=== PATIENT | female | born 1995 | race Caucasian/White ===

== ENCOUNTER 2023-03-28 06:46 | Inpatient (IN) | payer MEDICAID ==
[2023-03-28] MEDS ORDERED: Lidocaine 1% 50 ML MDV INJECT ONE ×2 (07:00→19:30)
[2023-03-28] MEDS ORDERED: Oxytocin/Lactated Ringers 10 UNIT/1,000 ML BAG IV SCH ×3 (07:00→23:02)
[2023-03-28] MEDS ORDERED: Nalbuphine HCl 10 MG/ 1ML Amp IVPUSH PRN (07:00)
[2023-03-28] MEDS ORDERED: Ondansetron 4 MG/2 ML SDV IVPUSH PRN (07:00)
[2023-03-28] MEDS ORDERED: Calcium Carbonate 500 MG Tab.Chew PO PRN (07:00)
[2023-03-28 07:20] LABS: BASOPHILS PERCENT AUTO 0.3 % (0.0-1.0); EOSINOPHILS PERCENT AUTO 0.3 % (0.0-6.0); IMMATURE GRAN ABSOLUTE AUTO 0.11 K/mm3 (0.00-0.05); IMMATURE GRAN PERCENT AUTO 1.1 % (0.0-0.4); LYMPHOCYTES ABSOLUTE AUTO 1.6 K/mm3 (1.0-4.8); LYMPHOCYTES PERCENT AUTO 15.8 % (24.0-44.0); MEAN CORPUSCULAR HGB CONC 34.2 g/dl (32.0-36.0); MEAN CORPUSCULAR VOLUME 93.6 fl (83.0-99.0); MEAN PLATELET VOLUME 10.4 fl (9.4-12.3); MONOCYTES ABSOLUTE AUTO 0.8 K/mm3 (0.0-0.8); MONOCYTES PERCENT AUTO 7.7 % (0.0-8.0); NEUTROPHILS ABSOLUTE AUTO 7.8 K/mm3 (1.8-7.7); NEUTROPHILS PERCENT AUTO 74.8 % (41.0-71.0); PLATELET COUNT,PLT 166 K/mm3 (150-400); RED BLOOD CELL COUNT 4.06 M/mm3 (4.10-5.30); WHITE BLOOD CELL COUNT,WBC 10.41 K/mm3 (3.9-11.3)
[2023-03-28] MEDS: Lactated Ringers 1,000 ML IV SCH ×2 (08:24→19:36)
[2023-03-28] MEDS ORDERED: Bupivacaine 0.25% 10 ML SDV ONE (12:00)
[2023-03-28] MEDS ORDERED: Tranexamic Acid 1,000 MG/10 ML Vial ONE (19:15)
[2023-03-28] MEDS ORDERED: Bupivacaine/fentaNYL/NS 100 ML Bag EPIDUR PRN (19:53)
[2023-03-28] MEDS ORDERED: diphenhydrAMINE 50 MG/ML SDV IVPUSH PRN (19:53)
[2023-03-28] MEDS ORDERED: fentaNYL 100 MCG/2 ML SDV EPIDUR PRN (19:53)
[2023-03-28] MEDS ORDERED: ePHEDrine 50 MG/ML SDV IVPUSH PRN (19:53)
[2023-03-28] MEDS ORDERED: Witch Hazel Medicated Pads 40/Jar TOP PRN (23:02)
[2023-03-28] MEDS ORDERED: Measles, Mumps & Rubella Vaccine 0.5 ML SDV SUBCUT ONE (23:02)
[2023-03-28] MEDS ORDERED: Benzocaine/Menthol 20%-0.5% Spray 78 GM Cannister TOP PRN (23:02)
[2023-03-28] MEDS ORDERED: Magnesium Hydroxide 400 MG/5 ML Susp 30 ML Cup PO PRN (23:02)
[2023-03-28] MEDS ORDERED: Hydrocortisone Acetate 25 MG Supp RECTAL PRN (23:02)
[2023-03-28] MEDS: Ibuprofen 600 MG Tab PO PRN (23:53)
[2023-03-28] MEDS: Acetaminophen 325 MG Tab PO PRN (23:53)
[2023-03-29] MEDS: Docusate Sodium 100 MG Cap PO PRN ×2 (08:29→21:26)
[2023-03-29] MEDS: Ibuprofen 600 MG Tab PO PRN ×2 (08:29→21:26)
[2023-03-29] MEDS ORDERED: Prenatal Multivitamin with Calcium/Folic Acid/Iron Tab PO SCH (09:00)
[2023-03-29] MEDS: Acetaminophen 325 MG Tab PO PRN (21:27)
[2023-03-30] MEDS: Docusate Sodium 100 MG Cap PO PRN (07:38)
[2023-03-30] MEDS: Ibuprofen 600 MG Tab PO PRN (07:38)
== END 2023-03-30 17:35 | disposition home or self-care (01) | DRG 807 ==
LOC: JD.OB 06:46 → OBSVTOIN 22:20 → JD.OB 22:20
PROVIDERS: ADMIT Obstetrics & Gynecology; ATTEND Obstetrics & Gynecology
PROC: 10E0XZZ Delivery of Products of Conception, External Approach (ICD-10-PCS; principal; 2023-03-28)
PROC: 10H07YZ Insertion of Other Device into Products of Conception, Via Natural or Artificial Opening (ICD-10-PCS; 2023-03-28)
PROC: 3E033VJ Introduction of Other Hormone into Peripheral Vein, Percutaneous Approach (ICD-10-PCS; 2023-03-28)
PROC: 3E0R3BZ Introduction of Anesthetic Agent into Spinal Canal, Percutaneous Approach (ICD-10-PCS; 2023-03-28)
PROC: 00HU33Z Insertion of Infusion Device into Spinal Canal, Percutaneous Approach (ICD-10-PCS; 2023-03-28)
PROC: 0HQ9XZZ Repair Perineum Skin, External Approach (ICD-10-PCS; 2023-03-28)
PROC: 10907ZC Drainage of Amniotic Fluid, Therapeutic from Products of Conception, Via Natural or Artificial Opening (ICD-10-PCS; 2023-03-28)
PROC: 3E0234Z Introduction of Serum, Toxoid and Vaccine into Muscle, Percutaneous Approach (ICD-10-PCS; 2023-03-28)
DX: O34.219 Maternal care for unspecified type scar from previous cesarean delivery (principal); Z37.0 Single live birth; O66.3 Obstructed labor due to other abnormalities of fetus; O99.343 Other mental disorders complicating pregnancy, third trimester; F41.9 Anxiety disorder, unspecified; F32.A Depression, unspecified; O70.0 First degree perineal laceration during delivery; O69.81X0 Labor and delivery complicated by cord around neck, without compression, not applicable or unspecified; Z3A.39 39 weeks gestation of pregnancy; Z88.2 Allergy status to sulfonamides; Z28.39 Other underimmunization status; Z23 Encounter for immunization
CPT/HCPCS: 36415; 51702; 59025; 59409; 85025; 86592; 86850; 86900; 86901; 90471; 90707; A9270-GY; C1726; J2300; J2405; J2590; J3010; J3490; J7120